=== PATIENT | female | born 1945 | race Caucasian/White ===

== ENCOUNTER → 2017-10-03 | Outpatient (CLI) | payer MEDICARE, OTHER ==
[~2017-10-03] MED LIST: ASP325 PO; IBU200 PO; LOR5/325 PO; MELO-207 PO; NONE REPORTED; OXYC-865 PO; PAN40 PO; PRED-1 PO; SERT-181 PO
--- NOTE | 2017-10-03 16:10 | RADIOLOGY IMAGING REPORT ---
FACILITY: [facility] [place] PATIENT NAME: Christel Flores : 1945 MR: [id number] V: [id number] EXAM DATE: [id number] ORDERING PHYSICIAN: MELITA CASTELLANO TECHNOLOGIST: Location: [facility] Patient: Christel Flroes : 1945 Visit/Account:[id number] Date of Sevice: 10/03/2017 Exam type: PELVIS History: Right hip pain Comparison: July 29, 2015. Findings: There is mild narrowing of the superior aspect of the left hip joint. There is no evidence of acute fractures involving the hips or the pelvic bones on this single AP view. SI joints appear symmetric bilaterally. IMPRESSION: 1. Mild narrowing of the superior aspect of the left hip joint No evidence of acute fractures identified Report Dictated By: Mayte Bah MD at 10/03/2017 3:55 PM Report E-Signed By: Mayte Bah MD at 10/03/2017 4:06 PM [email or web address]
== END ==
LOC: RAD 15:24
PROVIDERS: ATTEND Family Medicine
DX: M16.12 Unilateral primary osteoarthritis, left hip (principal)
CPT/HCPCS: 72170

== ENCOUNTER 2018-03-26 10:01 | Emergency (ER) | payer MEDICARE, OTHER ==
[~2018-03-26 10:01] MED LIST changes: -CYCL10TA29 PO; -PRED20TA6 PO
--- NOTE | 2018-03-26 10:02 | ER Report ---
History and Physical Time Seen By MD: 10:03 HPI/ROS CHIEF COMPLAINT: Right hip pain HISTORY OF PRESENT ILLNESS: This is a 72 year old female. 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 She thinks she lifted and twisted while bending over at the waist to pick of the backpack. She had pain that day, and a little on . She was fine on Tuesday and Tuesday. Upon awakening this morning, she had pain and a difficult time with walking. She got up and fed the dog and pain worsened to the point where she could not walk. She used a chair to get around the house and her sister came over and she was able to walk with her walker, but with pain. Pain is in the buttock and lateral hip area, does radiate to thigh. No injury this morning. Pain worsens with movement. Normal sensation in the leg and foot. Chronic episodic incontinence with urination, unchanged. Normal bowel movement this morning. No fevers or chills. No abdominal pain. Allergies: Coded Allergies: meperidine (Verified Adverse Reaction, Severe, NAUSEA/VOMITING, 03/26/18) Home Meds Active Scripts Cyclobenzaprine Hcl (CYCLOBENZAPRINE HCL) 10 Mg Tablet, 10 MG PO Q8H PRN for MUSCLE SPASMS, #20 TAB 0 Refills Prov:LUIGI BURR MD 03/26/18 Reported Medications Sertraline Hcl (SERTRALINE HCL) 100 Mg Tablet, 1 TAB PO QDAY, TAB 07/29/15 Meloxicam (MELOXICAM) 15 Mg Tablet, 15 MG PO QDAY 07/29/15 Discontinued Scripts Oxycodone Hcl/Acetaminophen (PERCOCET 5-325 MG TABLET) 1 Each Tablet, 1 EACH PO Q4-6H PRN for PAIN, #15 Prov:CARLOS JUNE DO 04/09/16 Prednisone 10 Mg Tab (PREDNISONE 10 MG TAB) 10 Mg Tablet, 10 MG PO QDAY PRN for reduce arthritis, inflammation, #7 4 tabs daily for 2 days 2 tabs daily for today 1 tab daily for 4 days Prov:CARLOS JUNE DO 04/09/16 Hydrocodone Bit/Acetaminophen (HYDROCODON-ACETAMINOPHEN 5-325) 1 Each Tablet, 1 EACH PO Q4-6H PRN for PAIN, #12 TAB 0 Refills TAKE ONE TABLET BY MOUTH EVERY 4-6 HOURS NEEDED FOR PAIN Prov:LUIGI BURR MD 07/29/15 Reviewed Nurses Notes: Yes Hx Smoking: Yes Smoking Status: Current: Every Day Smoker Hx Substance Use Disorder: No Hx Alcohol Use: No Constitutional Vital Sign - Last 24 Hours 03/26/18 03/26/18 03/26/18 03/26/18 10:02 10:30 11:01 11:30 Temp 97.2 Pulse 69 67 68 Resp 18 B/P (MAP) 132/68 118/60 (79) 139/72 (94) 145/62 (89) Pulse Ox 96 95 96 O2 Delivery Nasal Cannula Physical Exam General Appearance: The patient is alert. No acute distress. Eyes: Pupils are equal, round. No pallor, injection or icterus. ENT: Mucous membranes are moist. Respiratory: Lungs are clear to auscultation. Cardiovascular: Regular rate and rhythm. No murmurs, gallops or rubs. No edema. Normal peripheral pulses and capillary refill. Gastrointestinal: Abdomen is soft and non tender. Nondistended. Normal active bowel sounds. No costovertebral angle tenderness with percussion. Neurological: Alert and oriented x3. Normal sensation. Can move the leg, but pain throughout the hip. Skin: Warm and dry. No rashes. No bruising. Musculoskeletal: Pain with palpation over the buttock muscles and lateral hip. Minimal pain in groin area. Minimal pain in upper thigh. Minimal pain with palpation of low back or paraspinous muscles. Range of motion is intact, but with pain. No pain in knee or below. Not really sciatic area pain. DIFFERENTIAL DIAGNOSIS: After history and physical exam, differential diagnosis was considered for hip pain Medical Decision Making Data Points Result Diagram: 03/26/18 1027 03/26/18 1027 Laboratory Hematology Test 03/26/18 10:27 Red Blood Count 4.62 M/uL (4.17-5.56) Mean Corpuscular Volume 92.1 fL (80.0-96.0) Mean Corpuscular Hemoglobin 31.5 pg (26.0-33.0) Mean Corpuscular Hemoglobin Concent 34.2 g/dL (32.0-36.0) Red Cell Distribution Width 13.9 % (11.5-14.5) Mean Platelet Volume 9.0 fL (7.2-11.1) Neutrophils (%) (Auto) 91.8 % (39.4-72.5) Lymphocytes (%) (Auto) 4.8 % (17.6-49.6) Monocytes (%) (Auto) 3.0 % (4.1-12.4) Eosinophils (%) (Auto) 0.1 % (0.4-6.7) Basophils (%) (Auto) 0.3 % (0.3-1.4) Nucleated RBC Relative Count (auto) 0.0 /100WBC Neutrophils # (Auto) 10.2 K/uL (2.0-7.4) Lymphocytes # (Auto) 0.5 K/uL (1.3-3.6) Monocytes # (Auto) 0.3 K/uL (0.3-1.0) Eosinophils # (Auto) 0.0 K/uL (0.0-0.5) Basophils # (Auto) 0.0 K/uL (0.0-0.1) Nucleated RBC Absolute Count (auto) 0.00 K/uL Erythrocyte Sedimentation Rate 21 mm/HOUR (0-30) Sodium Level 141 mmol/L (137-145) Potassium Level 3.9 mmol/L (3.5-5.0) Chloride Level 106 mmol/L (98-107) Carbon Dioxide Level 26 mmol/L (22-31) Blood Urea Nitrogen 35 mg/dl (7-18) Creatinine 0.70 mg/dl (0.52-1.04) Glomerular Filtration Rate Calc > 60.0 Random Glucose 138 mg/dl (75-110) Calcium Level 8.9 mg/dl (8.4-10.2) Total Bilirubin 0.3 mg/dl (0.2-1.3) Aspartate Amino Transf (AST/SGOT) 17 U/L (0-35) Alanine Aminotransferase (ALT/SGPT) 24 U/L (0-56) Alkaline Phosphatase 65 U/L (0-126) C-Reactive Protein 2.5 mg/dl (<1.0) Total Protein 6.9 g/dl (6.3-8.2) Albumin 4.2 g/dl (3.5-5.0) Chemistry Test 03/26/18 10:27 White Blood Count 11.1 k/uL (4.5-11.0) Red Blood Count 4.62 M/uL (4.17-5.56) Hemoglobin 14.6 g/dL (12.0-16.0) Hematocrit 42.6 % (34.0-47.0) Mean Corpuscular Volume 92.1 fL (80.0-96.0) Mean Corpuscular Hemoglobin 31.5 pg (26.0-33.0) Mean Corpuscular Hemoglobin Concent 34.2 g/dL (32.0-36.0) Red Cell Distribution Width 13.9 % (11.5-14.5) Platelet Count 203 K/uL (150-450) Mean Platelet Volume 9.0 fL (7.2-11.1) Neutrophils (%) (Auto) 91.8 % (39.4-72.5) Lymphocytes (%) (Auto) 4.8 % (17.6-49.6) Monocytes (%) (Auto) 3.0 % (4.1-12.4) Eosinophils (%) (Auto) 0.1 % (0.4-6.7) Basophils (%) (Auto) 0.3 % (0.3-1.4) Nucleated RBC Relative Count (auto) 0.0 /100WBC Neutrophils # (Auto) 10.2 K/uL (2.0-7.4) Lymphocytes # (Auto) 0.5 K/uL (1.3-3.6) Monocytes # (Auto) 0.3 K/uL (0.3-1.0) Eosinophils # (Auto) 0.0 K/uL (0.0-0.5) Basophils # (Auto) 0.0 K/uL (0.0-0.1) Nucleated RBC Absolute Count (auto) 0.00 K/uL Erythrocyte Sedimentation Rate 21 mm/HOUR (0-30) Glomerular Filtration Rate Calc > 60.0 Calcium Level 8.9 mg/dl (8.4-10.2) Total Bilirubin 0.3 mg/dl (0.2-1.3) Aspartate Amino Transf (AST/SGOT) 17 U/L (0-35) Alanine Aminotransferase (ALT/SGPT) 24 U/L (0-56) Alkaline Phosphatase 65 U/L (0-126) C-Reactive Protein 2.5 mg/dl (<1.0) Total Protein 6.9 g/dl (6.3-8.2) Albumin 4.2 g/dl (3.5-5.0) EKG/Imaging Imaging HIP RIGHT Indication: Right hip pain. Comparison: Pelvis x-ray on 10/03/2017. Findings: AP view the pelvis and frog-leg lateral view the right hip. No fracture or dislocation. The hips are symmetric. Both hips show minimal degenerative change of mild joint space narrowing and subchondral bony changes. No bony lesions. Mild degenerative change seen in the visualized lumbar spine. Sacrum and SI joints are unremarkable. Soft tissues are unremarkable. IMPRESSION: 1. Minimal degenerative changes without acute abnormality. Report Dictated By: Ray Santana at 03/26/2018 12:04 PM LUMBAR SPINE 2 OR 3 VIEW INDICATION: Right hip pain. COMPARISON: CT of the abdomen and pelvis on 07/13/2010, report as the images were not able to be visualized.. FINDINGS: 3 views lumbar spine. There are 5 nonrib-bearing lumbar vertebral bodies. Leftward convexity is present. The vertebral bodies are aligned. No compression fracture, bony lesion or spondylolysis. There is diffuse degenerative changes are mainly mild however at the L2-3 level there is more moderate degenerative changes. The changes include disc space, endplate changes, osteophytes and facet arthropathy. The endplates are maintained. The pedicles are well seen. IMPRESSION: 1. No acute abnormality. 2. Degenerative changes more prominent the L2-3 level. Leftward convexity. Report Dictated By: Ray Santana at 03/26/2018 12:01 PM ED Course/Re-evaluation Clinical Indication for ER IV: Hydration, IV Access ED Course Labs obtained, and she shows some dehydration with prerenal state of BUN and Creatinine. Mild elevation of his CRP, but normal white count and ESR. She had some improvement with Flexeril and Ibuprofen. He imaging showed no acute problem. Suspect muscle strain. Decision to Disposition Date: Mar 26, 2018 Decision to Disposition Time: 12:16 Depart Departure Latest Vital Signs Vital Signs Date Time Temp Pulse Resp B/P (MAP) Pulse Ox O2 Delivery O2 Flow Rate FiO2 03/26/18 11:30 68 145/62 (89) 96 03/26/18 10:02 97.2 18 Nasal Cannula Impression: Primary Impression: Strain of muscle of right hip Condition: Improved Disposition: HOME OR SELF-CARE Referrals: MELITA CASTELLANO MD (PCP) New Scripts Cyclobenzaprine Hcl (CYCLOBENZAPRINE HCL) 10 Mg Tablet 10 MG PO Q8H PRN for MUSCLE SPASMS, #20 TAB 0 Refills Prov: LUIGI BURR MD 03/26/18 Patient Instructions: Muscle Strain (ED) Additional Instructions: Increase fluid intake. Take Ibuprofen 200mg over the counter tablets, take 3 tablets every 8 hours as needed for pain. Take Flexeril 10mg, one every 8 hours as needed for muscle spasm and pain. This medicine may make you drowsy. Use a walker for the next few days while having pain. Problem Qualifiers Primary Impression: Strain of muscle of right hip Encounter type: initial encounter Qualified Codes: S76.011A - Strain of muscle, fascia and tendon of right hip, initial encounter LUIGI BURR MD Mar 26, 2018 10:02
[2018-03-26 10:36] LABS: PLATELET COUNT, AUTOMATED 203 K/uL (150-450)
[2018-03-26] MEDS ORDERED: NS(*) 0.9% 1000 ML BAG 1,000 ML IV ONE (10:55)
[2018-03-26 11:30] VITALS: BP 145/62
--- NOTE | 2018-03-26 12:07 | RADIOLOGY IMAGING REPORT ---
FACILITY: [facility] PATIENT NAME: Christel Flores : 1945 MR: [id number] V: [id number] EXAM DATE: ORDERING PHYSICIAN: LUIGI BURR TECHNOLOGIST: Location: [facility] Patient: Christel Flores : 1945 Visit/Account:[id number] Date of Sevice: 03/26/2018 LUMBAR SPINE 2 OR 3 VIEW INDICATION: Right hip pain. COMPARISON: CT of the abdomen and pelvis on 07/13/2010, report as the images were not able to be visu alized.. FINDINGS: 3 views lumbar spine. There are 5 nonrib-bearing lumbar vertebral bodies. Leftward convex ity is present. The vertebral bodies are aligned. No compression fracture, bony lesion or spondylolys is. There is diffuse degenerative changes are mainly mild however at the L2-3 level there is more mod erate degenerative changes. The changes include disc space, endplate changes, osteophytes and facet a rthropathy. The endplates are maintained. The pedicles are well seen. IMPRESSION: 1. No acute abnormality. 2. Degenerative changes more prominent the L2-3 level. Leftward convexity. Report Dictated By: Ray Santana at 03/26/2018 12:01 PM Report E-Signed By: Ray Santana at 03/26/2018 12:04 PM WSN:[id number]
--- NOTE | 2018-03-26 12:09 | RADIOLOGY IMAGING REPORT ---
FACILITY: [facility] PATIENT NAME: Christel Flores : 1945 MR: [id number] V: [id number] EXAM DATE: ORDERING PHYSICIAN: LUIGI BURR TECHNOLOGIST: Location: [facility] [place] Patient: Christel Flores : 1945 Visit/Account:[id number] Date of Sevice: 03/26/2018 HIP RIGHT Indication: Right hip pain. Comparison: Pelvis x-ray on 10/03/2017. Findings: AP view the pelvis and frog-leg lateral view the right hip. No fracture or dislocation. The hips are symmetric. Both hips show minimal degenerative change of mil d joint space narrowing and subchondral bony changes. No bony lesions. Mild degenerative change seen in the visualized lumbar spine. Sacrum and SI joints are unremarkable. Soft tissues are unremarkable. IMPRESSION: 1. Minimal degenerative changes without acute abnormality. Report Dictated By: Ray Santaan at 03/26/2018 12:04 PM Report E-Signed By: Ray Santana at 03/26/2018 12:06 PM WSN:[email or web address]
[2018-03-26] MEDS ORDERED: CYCLOBENZAPRINE HCL 10 MG TAB PO ONE (12:10)
[2018-03-26] MEDS ORDERED: IBUPROFEN 800 MG TAB PO ONE (12:10)
[2018-03-26] MEDS ORDERED: CYCL10TA29 PO (12:17)
== END 2018-03-26 12:20 | disposition home or self-care (01) ==
LOC: ER 10:04
DX: S76.011A Strain of muscle, fascia and tendon of right hip, initial encounter (principal)
CPT/HCPCS: 36415; 72100; 73502; 85025; 85651; 86140; 96360; 99284; A9270; J7030; 82040; 82247; 82310; 82374; 82435; 82565; 82947; 84075; 84132; 84155; 84295; 84450; 84460; 84520

== ENCOUNTER → 2018-03-26 | Outpatient (CLI) | payer MEDICARE, OTHER ==
[~2018-03-26] MED LIST changes: +CYCL10TA29 PO; +PRED20TA6 PO
== END ==
LOC: AMB 09:25
PROVIDERS: ATTEND Nurse Practitioner
DX: M25.552 Pain in left hip (principal)
CPT/HCPCS: A0425; A0427

== ENCOUNTER 2018-04-06 17:50 | Emergency (ER) | payer MEDICARE, OTHER ==
[~2018-04-06 17:50] MED LIST changes: -PRED20TA6 PO
[2018-04-06] MEDS ORDERED: PRED20TA6 PO (18:03)
--- NOTE | 2018-04-06 18:05 | ER Report ---
History and Physical Time Seen By MD: 18:04 Hx. of Stated Complaint: PT STARTED HAVING CHEST PAIN THIS MORNING DESCRIBES IT ACID REFLUX TYPE PAIN. PT REPORTS THE REASON SHE IS HERE IS BECAUSE SHE CANNOT STAND LONG ENOUGH TO COOK OR DO ANYTHING FOR HERSELF BECAUSE SHE GETS DIZZY AND WEAK HPI/ROS CHIEF COMPLAINT: Dizziness, lightheadedness, falls at home HISTORY OF PRESENT ILLNESS: Patient is a 72-year-old female here with complaints of dizziness, lightheadedness and recurrent falls at home. Patient reports that recently she has become increasingly more lightheaded and unable to walk around her house for extended period 2 to dizziness and lightheadedness and weakness. She did have a brief bout of burning epigastric pain which she attributed to acid reflux which is been recurrent on and off for the past several weeks. Patient also reports pain which originates in the right sciatic notch and radiates down to the knee for which she has been taking tramadol at home. Patient is scheduled for physical therapy starting on Tuesday of next week. Patient is afebrile, hemodynamically stable. Patient denies hitting her head however she does report increasing lightheadedness. Denies chest pain, shortness of breath, nausea, vomiting, fevers or chills. She did report having some difficulty with urination which has since resolved and was present in the past several days. She does ambulate with a walker and cane. REVIEW OF SYSTEMS: Constitutional: No fever, no chills. Eyes: No discharge. ENT: No sore throat. Cardiovascular: No chest pain, no palpitations. Respiratory: No cough, no shortness of breath. Gastrointestinal: No abdominal pain, no vomiting. Genitourinary: No hematuria. Musculoskeletal: + right back pain at sciatic notch with radiation to the right knee. Skin: No rashes. Neurological: No headache, + lightheadedness, NV intact in the lower extremities b/l without paresthesias or weakness Allergies: Coded Allergies: meperidine (Verified Adverse Reaction, Severe, NAUSEA/VOMITING, 03/26/18) Home Meds Reported Medications Prednisone (PREDNISONE) 20 Mg Tablet, 20 MG PO BID, TAB 04/06/18 Sertraline Hcl (SERTRALINE HCL) 100 Mg Tablet, 1 TAB PO QDAY, TAB 07/29/15 Meloxicam (MELOXICAM) 15 Mg Tablet, 15 MG PO QDAY 07/29/15 Discontinued Scripts Cyclobenzaprine Hcl (CYCLOBENZAPRINE HCL) 10 Mg Tablet, 10 MG PO Q8H PRN for MUSCLE SPASMS, #20 TAB 0 Refills Prov:LUIGI BURR MD 03/26/18 Hx Smoking: Yes Smoking Status: Current: Every Day Smoker Hx Substance Use Disorder: No Hx Alcohol Use: No Constitutional Vital Sign - Last 24 Hours 04/06/18 04/06/18 17:52 19:04 Temp 98.1 Pulse 82 Resp 16 B/P (MAP) 162/109 Pulse Ox 96 O2 Delivery Nasal Cannula O2 Flow Rate 1.0 Physical Exam General Appearance: The patient is alert, has no immediate need for airway protection and no signs of toxicity. NAD Eyes: Pupils equal and round no pallor or injection. ENT, Mouth: Mucous membranes are moist. Respiratory: There are no retractions, lungs are clear to auscultation. Cardiovascular: Regular rate and rhythm. Gastrointestinal: Abdomen is soft and non tender, no masses, bowel sounds normal. Neurological: + pain radiating to the right knee, NV exam is intact in the extremities, No focal deficits Skin: Warm and dry, no rashes. Musculoskeletal: Neck is supple non tender. Extremities are nontender, nonswollen and have full range of motion. DIFFERENTIAL DIAGNOSIS: After history and physical exam differential diagnosis was considered for dizziness including but not limited to peripheral and central causes of vertigo, orthostatic causes including dehydration, and blood loss. Medical Decision Making Data Points Result Diagram: 04/06/18 1757 04/06/18 1757 Laboratory Hematology Test 04/06/18 17:57 04/06/18 18:37 04/06/18 18:56 Red Blood Count 4.94 M/uL (4.17-5.56) Mean Corpuscular Volume 89.9 fL (80.0-96.0) Mean Corpuscular Hemoglobin 31.0 pg (26.0-33.0) Mean Corpuscular Hemoglobin Concent 34.5 g/dL (32.0-36.0) Red Cell Distribution Width 14.2 % (11.5-14.5) Mean Platelet Volume 9.1 fL (7.2-11.1) Neutrophils (%) (Auto) 78.3 % (39.4-72.5) Lymphocytes (%) (Auto) 15.0 % (17.6-49.6) Monocytes (%) (Auto) 5.8 % (4.1-12.4) Eosinophils (%) (Auto) 0.6 % (0.4-6.7) Basophils (%) (Auto) 0.3 % (0.3-1.4) Nucleated RBC Relative Count (auto) 0.0 /100WBC Neutrophils # (Auto) 10.0 K/uL (2.0-7.4) Lymphocytes # (Auto) 1.9 K/uL (1.3-3.6) Monocytes # (Auto) 0.7 K/uL (0.3-1.0) Eosinophils # (Auto) 0.1 K/uL (0.0-0.5) Basophils # (Auto) 0.0 K/uL (0.0-0.1) Nucleated RBC Absolute Count (auto) 0.00 K/uL Sodium Level 140 mmol/L (137-145) Potassium Level 3.5 mmol/L (3.5-5.0) Chloride Level 103 mmol/L (98-107) Carbon Dioxide Level 25 mmol/L (22-31) Blood Urea Nitrogen 26 mg/dl (7-18) Creatinine 0.70 mg/dl (0.52-1.04) Glomerular Filtration Rate Calc > 60.0 Random Glucose 114 mg/dl (75-110) Calcium Level 9.4 mg/dl (8.4-10.2) Total Bilirubin 0.3 mg/dl (0.2-1.3) Aspartate Amino Transf (AST/SGOT) 23 U/L (0-35) Alanine Aminotransferase (ALT/SGPT) 28 U/L (0-56) Alkaline Phosphatase 81 U/L (0-126) Troponin I < 0.012 ng/ml Total Protein 7.6 g/dl (6.3-8.2) Albumin 4.3 g/dl (3.5-5.0) Blood Gas Patient Temperature 98.7 DEGREES Venous Blood pH 7.46 (7.31-7.41) Venous Blood Partial Pressure CO2 36 mmHg Venous Blood Partial Pressure O2 47 mmHg Venous Blood HCO3 25 mmol/L Venous Blood Oxygen Saturation 85 % Venous Blood Base Excess 1 mmol/L Oxygen Liters/Minute 1l Urine Color Straw Urine Clarity Clear Urine pH 6.0 pH (4.8-9.5) Urine Specific [place] 1.010 Urine Protein Negative mg/dL (NEGATIVE) Urine Glucose (UA) Negative mg/dL (NEGATIVE) Urine Ketones Negative mg/dL (NEGATIVE) Urine Blood Small (NEGATIVE) Urine Nitrite Negative (NEGATIVE) Urine Bilirubin Negative (NEGATIVE) Urine Urobilinogen Negative mg/dL (0.2-1.9) Urine Leukocyte Esterase Trace (NEGATIVE) Urine RBC 1 /HPF (0-2/HPF) Urine WBC 2 /HPF (0-5/HPF) Urine Squamous Epithelial Cells Few /LPF (</=FEW) Urine Bacteria Negative /HPF (NONE-FEW) Urine Mucus None /HPF (NONE-FEW) Chemistry Test 04/06/18 17:57 04/06/18 18:37 04/06/18 18:56 White Blood Count 12.7 k/uL (4.5-11.0) Red Blood Count 4.94 M/uL (4.17-5.56) Hemoglobin 15.3 g/dL (12.0-16.0) Hematocrit 44.4 % (34.0-47.0) Mean Corpuscular Volume 89.9 fL (80.0-96.0) Mean Corpuscular Hemoglobin 31.0 pg (26.0-33.0) Mean Corpuscular Hemoglobin Concent 34.5 g/dL (32.0-36.0) Red Cell Distribution Width 14.2 % (11.5-14.5) Platelet Count 306 K/uL (150-450) Mean Platelet Volume 9.1 fL (7.2-11.1) Neutrophils (%) (Auto) 78.3 % (39.4-72.5) Lymphocytes (%) (Auto) 15.0 % (17.6-49.6) Monocytes (%) (Auto) 5.8 % (4.1-12.4) Eosinophils (%) (Auto) 0.6 % (0.4-6.7) Basophils (%) (Auto) 0.3 % (0.3-1.4) Nucleated RBC Relative Count (auto) 0.0 /100WBC Neutrophils # (Auto) 10.0 K/uL (2.0-7.4) Lymphocytes # (Auto) 1.9 K/uL (1.3-3.6) Monocytes # (Auto) 0.7 K/uL (0.3-1.0) Eosinophils # (Auto) 0.1 K/uL (0.0-0.5) Basophils # (Auto) 0.0 K/uL (0.0-0.1) Nucleated RBC Absolute Count (auto) 0.00 K/uL Glomerular Filtration Rate Calc > 60.0 Calcium Level 9.4 mg/dl (8.4-10.2) Total Bilirubin 0.3 mg/dl (0.2-1.3) Aspartate Amino Transf (AST/SGOT) 23 U/L (0-35) Alanine Aminotransferase (ALT/SGPT) 28 U/L (0-56) Alkaline Phosphatase 81 U/L (0-126) Troponin I < 0.012 ng/ml Total Protein 7.6 g/dl (6.3-8.2) Albumin 4.3 g/dl (3.5-5.0) Blood Gas Patient Temperature 98.7 DEGREES Venous Blood pH 7.46 (7.31-7.41) Venous Blood Partial Pressure CO2 36 mmHg Venous Blood Partial Pressure O2 47 mmHg Venous Blood HCO3 25 mmol/L Venous Blood Oxygen Saturation 85 % Venous Blood Base Excess 1 mmol/L Oxygen Liters/Minute 1l Urine Color Straw Urine Clarity Clear Urine pH 6.0 pH (4.8-9.5) Urine Specific [place] 1.010 Urine Protein Negative mg/dL (NEGATIVE) Urine Glucose (UA) Negative mg/dL (NEGATIVE) Urine Ketones Negative mg/dL (NEGATIVE) Urine Blood Small (NEGATIVE) Urine Nitrite Negative (NEGATIVE) Urine Bilirubin Negative (NEGATIVE) Urine Urobilinogen Negative mg/dL (0.2-1.9) Urine Leukocyte Esterase Trace (NEGATIVE) Urine RBC 1 /HPF (0-2/HPF) Urine WBC 2 /HPF (0-5/HPF) Urine Squamous Epithelial Cells Few /LPF (</=FEW) Urine Bacteria Negative /HPF (NONE-FEW) Urine Mucus None /HPF (NONE-FEW) Urinalysis Test 04/06/18 18:56 Urine Color Straw Urine Clarity Clear Urine pH 6.0 pH (4.8-9.5) Urine Specific [place] 1.010 Urine Protein Negative mg/dL (NEGATIVE) Urine Glucose (UA) Negative mg/dL (NEGATIVE) Urine Ketones Negative mg/dL (NEGATIVE) Urine Blood Small (NEGATIVE) Urine Nitrite Negative (NEGATIVE) Urine Bilirubin Negative (NEGATIVE) Urine Urobilinogen Negative mg/dL (0.2-1.9) Urine Leukocyte Esterase Trace (NEGATIVE) Urine RBC 1 /HPF (0-2/HPF) Urine WBC 2 /HPF (0-5/HPF) Urine Squamous Epithelial Cells Few /LPF (</=FEW) Urine Bacteria Negative /HPF (NONE-FEW) Urine Mucus None /HPF (NONE-FEW) EKG/Imaging EKG Interpretation 12 lead EKG: Normal sinus rhythm, ventricular rate 72, QTc interval 427, no ischemic changes or ST abnormalities. Rhythm: Normal sinus rhythm [place]: normal QRS: normal ST segments: normal Monitor Interpretation: Normal Sinus Rhythm ED Course/Re-evaluation ED Course Patient is a 72-year-old female here with complaints of lightheadedness and recurrent falls recently secondary to lightheadedness. Patient was advised to use her walker at all times while at her house and to seek home health or staying with friends or family for help with completing daily activities. Patient is scheduled for physical therapy on Tuesday. CT imaging of the head showed no acute intracranial findings. Labs were unremarkable. White blood cell count was mildly elevated at 12,000 which is likely secondary to patient taking steroids for sciatica. Patient was advised to continue taking steroids. Patient had trace leuk esterase with 2 white blood cells in the urine, on further investigation, patient denied urinary symptoms of burning with urination, increased frequency. Patient was given Toradol and 1 Percocet for analgesia. Patient was advised to return promptly if she felt unsafe at home, had recurrent falls, had worsening dizziness, fevers, chest pain, shortness breath, nausea or vomiting, abdominal pain or decreased by mouth intake. Decision to Disposition Date: Apr 06, 2018 Decision to Disposition Time: 20:12 Depart Departure Latest Vital Signs Vital Signs Date Time Temp Pulse Resp B/P (MAP) Pulse Ox O2 Delivery O2 Flow Rate FiO2 04/06/18 19:04 1.0 04/06/18 17:52 98.1 82 16 162/109 96 Nasal Cannula Impression: Primary Impression: Sciatica Additional Impression: Lightheadedness Condition: Improved Disposition: HOME OR SELF-CARE Referrals: MELITA CASTELLANO MD (PCP) Patient Instructions: Lightheadedness (ED), Sciatica (ED) Additional Instructions: Please continue taking her home medications including tramadol, prednisone. Please follow-up with physical therapy as scheduled. Please consider pursuing [facility] for help at home if he continue having lightheadedness and difficulty completing activities of daily living. Please return promptly if you develop dizziness, inability to walk, inability to care for yourself. Problem Qualifiers JEANNE VALLE DO Apr 06, 2018 18:05
[2018-04-06] MEDS ORDERED: NS(*) 0.9% 1000 ML BAG 1,000 ML IV ONE (18:22)
[2018-04-06] MEDS ORDERED: KETOROLAC 30 MG/ML VIAL IVP ONE (18:25)
[2018-04-06 18:29] LABS: PLATELET COUNT, AUTOMATED 306 K/uL (150-450)
--- NOTE | 2018-04-06 18:42 | EKG ---
FACILITY: [facility] [place] PATIENT NAME: SUE KING : [id number] MR: [id number] V: [id number] EXAM DATE: ORDERING PHYSICIAN: JEANNE VALLE TECHNOLOGIST: Test Reason : dizziness Blood Pressure : / mmHG Vent. Rate : 072 BPM Atrial Rate : 072 BPM P-R Int : 130 ms QRS Dur : 070 ms QT Int : 390 ms P-R-T Axes : 065 049 045 degrees QTc Int : 427 ms Normal sinus rhythm with artifact Borderline ECG No previous ECGs available Confirmed by Ankit Stewart ([id number]) on 04/06/2018 8:14:32 PM Referred By: Confirmed By:Ankit Michel
--- NOTE | 2018-04-06 19:44 | RADIOLOGY IMAGING REPORT ---
FACILITY: [facility] - [place] PATIENT NAME: Christel Flores : 1945 MR: [id number] V: [id number] EXAM DATE: ORDERING PHYSICIAN: JEANNE VALLE TECHNOLOGIST: Location: [facility] [place] Patient: Christel Flores : 1945 Visit/Account:[id number] Date of Sevice: 04/06/2018 EXAMINATION: Head CT without intravenous contrast HISTORY: Lightheadedness. Headache. COMPARISON: None. TECHNIQUE: Contiguous axial images were obtained from the skull base to the vertex without intraven ous contrast. Sagittal and coronal reformatted images are also submitted. One of the following dose optimization techniques was utilized in the performance of this exam: Autom ated exposure control; adjustment of the mA and/or kV according to the patient's size; or use of an i terative reconstruction technique. Specific details can be referenced in the facility's radiology C T exam operational policy. FINDINGS: Brain and intracranial structures: Mild cerebral volume loss with corresponding mild sulcal prominen ce. The ventricles are normal in size. The cerebellar tonsils are low-lying, extending up to 6 mm bel ow the foramen magnum. No midline shift, acute hemorrhage, acute infarct, or mass. Vessels: Mild calcification of the carotid siphons. Calvarium / scalp: Negative. No acute fracture. Skull base / visualized face: Negative. Visualized sinuses / orbits: Trace mucosal thickening in the right maxillary sinus. Mild mucosal thi ckening in the anterior ethmoid air cells and in the frontoethmoidal recesses. The lenses have been e xtracted or replaced. IMPRESSION: No CT evidence of acute intracranial pathology. The cerebellar tonsils are mildly low lying compatible with Chiari I malformation. Report Dictated By: Edward Story MD at 04/06/2018 7:32 PM Report E-Signed By: Edward Story MD at 04/06/2018 7:40 PM WSN:[id number]
[2018-04-06 20:26] VITALS: BP 138/88
== END 2018-04-06 20:25 | disposition home or self-care (01) ==
LOC: ER 18:01
DX: M54.31 Sciatica, right side (principal); R42 Dizziness and giddiness
CPT/HCPCS: 36415; 70450; 81001; 82803; 84484; 85025; 87088; 93005; 96361; 96374; 99284; A9270; J1885; J7030; 82040; 82247; 82310; 82374; 82435; 82565; 82947; 84075; 84132; 84155; 84295; 84450; 84460; 84520

== ENCOUNTER → 2018-04-06 | Outpatient (CLI) | payer MEDICARE, OTHER ==
[~2018-04-06] MED LIST changes: +CYCL10TA29 PO; +PRED20TA6 PO
== END ==
LOC: AMB 17:25
PROVIDERS: ATTEND Nurse Practitioner
DX: R07.9 Chest pain, unspecified (principal); R53.1 Weakness; R42 Dizziness and giddiness; R09.02 Hypoxemia
CPT/HCPCS: A0425; A0427

== ENCOUNTER → 2018-04-20 | Outpatient (CLI) | payer MEDICARE, OTHER ==
[~2018-04-20] MED LIST changes: +PRED20TA6 PO
--- NOTE | 2018-04-20 13:09 | RADIOLOGY IMAGING REPORT ---
FACILITY: [facility] - [place] PATIENT NAME: Chrsitel Flores : 1945 MR: [id number] V: [id number] EXAM DATE: ORDERING PHYSICIAN: DAI LYLES TECHNOLOGIST: [facility] Patient: Christel Flores : 1945 Visit/Account:[id number] Date of Sevice: 04/20/2018 MRI pelvis and left hip Indication: Hip pain. Comparison: Plain films 03/26/2018 were reviewed. Technique: Coronal T1-weighted, STIR, proton density, axial STIR were obtained through the whole pelv is. Sagittal and coronal proton density fat-saturated images were obtained through the left hip as we ll. Findings: The marrow pattern of the proximal femora is normal bilaterally. There is no evidence of proximal fem ur fracture, stress reaction or osteonecrosis. The marrow pattern of the bony pelvis and sacrum is no rmal. 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 Degenerative disc disease involves the low lumbar spine most pronounced at L3-4 on the edge of the [id number]-[id number]-zygz. The larger nsala-[id number] images demonstrate symmetric hip joints. No joint effusions. No joint space narrowing is suggested. The smaller ervqh-vr-goeq images through the right hip demonstrate undersurface tearing of the anteri or acetabular labrum which extends into the superolateral labrum. No labral detachment or para labral cyst formation is seen. Minimal chondrosis along the anterior weightbearing surface of the acetabulu m is seen in the sagittal plane. With respect to the pelvic musculature, there is abnormal thickening and increased T2 signal involvin g the right sided gluteus medius and gluteus minimus tendons at the insertions. There are areas of pa rtial-thickness tearing involving both the gluteus minimus and gluteus medius tendons at the insertio ns. There is mild associated gluteus medius myotendinous edema. There is associated mild greater troc hanteric bursitis. On the left, mild insertional tendinopathy seen with trace fluid in the greater tr ochanteric bursa. This is clearly asymmetrically worsened on the right when compared to the left. Common hamstring tendon origins are normal. Short adductors are normal. Iliopsoas insertions are main tained. IMPRESSION: 1. Undersurface tear of the right hip anterior acetabular labrum which extends into the superolateral labrum. No evidence of para labral cyst. 2. Minimal chondrosis/osteoarthritis of the right hip. 3. Moderate severity right gluteus medius and gluteus minimus insertional tendinopathy with partial-t hickness insertional tearing and with associated right-sided greater trochanteric bursitis. 4. Low-grade right gluteus medias distal myotendinous strain. 5. Mild left-sided gluteal insertional tendinopathy with trace fluid in the greater trochanteric burs a. Report Dictated By: Andrea Antonio at 04/20/2018 12:54 PM Report E-Signed By: Andrea Antonio at 04/20/2018 1:05 PM WSN:[id number]
--- NOTE | 2018-04-20 16:13 | RADIOLOGY IMAGING REPORT ---
FACILITY: [facility] PATIENT NAME: Christel Flores : 1945 MR: [id number] V: [id number] EXAM DATE: ORDERING PHYSICIAN: ADI LYLES TECHNOLOGIST: [facility] Patient: Christel Flores : 1945 Visit/Account:[id number] Date of Sevice: 04/20/2018 L SPINE W/O CONTRAST COMPARISON: None Additional pertinent history: Right hip pain continued muscle weakness in the right leg. Technique: Multiplanar multisequence lumbar spine MRI was performed without gadolinium enhancement. FINDINGS: Vertebral body heights and alignment: Negative. Vertebral marrow signal: Type one degenerative endplate changes at L2-L3 and L3-L4. Distal thoracic cord and conus: Negative. The conus ends at T12-L1. Surrounding soft tissues: Negative. Inspection of the disc spaces reveal the following: L5-S1: Posterior broad-based disc protrusion with facet hypertrophic changes. Moderate bilateral neur al foraminal narrowing somewhat greater on the left than right. No canal stenosis. L4-L5: Posterior broad-based disc protrusion with facet hypertrophic changes. Moderate bilateral neur al foraminal narrowing. No canal stenosis. L3-L4: Posterior broad-based disc protrusion with facet hypertrophic changes. Severe canal stenosis a nd severe right-sided neural foraminal narrowing. Mild left-sided neural foraminal narrowing. Posteri or to the right aspect of the L3 vertebral body are findings of an extruded sequestered disc fragment with significant impingement upon the right lateral recess portion of the canal and extending into t he superior aspects of the right neural foramen at L3-L4. L2-L3: Posterior broad-based disc protrusion with facet hypertrophic changes. Moderate right-sided ne ural foraminal narrowing. Mild left-sided neural foraminal narrowing. Moderate central canal stenosis . L1-L2: Circumferential disc bulging with facet hypertrophic changes. No significant canal or neural f oraminal narrowing. T12-L1: Negative. IMPRESSION: 1. Multilevel spondylitic change as discussed above. 2. Findings felt to be potentially most significant at L3-L4 with severe canal stenosis and severe ri ght-sided neural foraminal narrowing and mild left-sided neural foraminal narrowing. In addition post erior to the right aspect of the L3 vertebral bodies are findings of right lateral recess stenosis re lated to a sequestered disc fragment in this portion of the canal. Report Dictated By: Dai Joseph MD at 04/20/2018 4:02 PM Report E-Signed By: Dai Joseph MD at 04/20/2018 4:09 PM WSN:[id number]
== END ==
LOC: MRI 01:12
PROVIDERS: ATTEND Family Medicine
DX: M47.896 Other spondylosis, lumbar region (principal); M48.061 Spinal stenosis, lumbar region without neurogenic claudication; M16.11 Unilateral primary osteoarthritis, right hip; M51.84 Other intervertebral disc disorders, thoracic region
CPT/HCPCS: 72148